=== PATIENT | male | born 1990 | race Caucasian/White ===

== ENCOUNTER 2019-09-12 17:03 | Emergency (ER) | payer BC ==
[2019-09-12] MEDS ORDERED: HYDROCODONE/APAP 7.5/325 MG TAB ONE (17:32)
[2019-09-12] MEDS ORDERED: IBUPROFEN 400 MG TAB ONE (17:32)
--- NOTE | 2019-09-12 18:27 | ER ---
Nurse's Notes [facility] Name: Sekou Hammond Age: 28 yrs Sex: Male : 1990 Arrival Date: 09/12/2019 Time: 17:07 Bed 19 Private MD: Diagnosis: Pain in right knee Presentation: 09/11 17:15 Chief complaint: Patient states: [place] a pop then pain to right knee after getting up ll1 from crouching position 90 min [employer]. No trauma or falls. Coronavirus screen: Proceed with normal triage. Patient denies a cough. Patient denies shortness of breath or difficulty breathing. Patient denies measured and/or subjective temperature greater than 100.4F prior to today's visit. Patient denies travel on a cruise ship or to a country the [facility] currently lists as an affected area. Patient denies contact with known and/or suspected case of COVID-19. Ebola Screen: Patient denies travel to an Ebola-affected area in the 21 days before illness onset. Initial Sepsis Screen: Does the patient meet any 2 criteria? HR > 90 bpm. Yes Does the patient have a suspected source of infection? No. Patient's initial sepsis screen is negative. Risk Assessment: Do you want to hurt yourself or someone else? Patient reports no desire to harm self or others. Onset of symptoms was September 12, 2019. 17:15 Method Of Arrival: Wheelchair ll1 17:15 Acuity: SANJAY 4 ll1 Historical: - Allergies: 17:17 No Known Allergies; ll1 - PMHx: 17:17 None; ll1 - PSHx: 17:17 None; ll1 - Immunization history:: Adult Immunizations up to date, Flu vaccine is up to date. - Social history:: Smoking status: Patient reports the use of cigarette tobacco products, smokes one-half pack cigarettes per day, Patient uses alcohol, only on a social basis. Patient/guardian denies using street drugs. Screenin:30 Abuse screen: Denies threats or abuse. Nutritional screening: No deficits noted. ah Tuberculosis screening: No symptoms or risk factors identified. Fall Risk None identified. Assessment: 17:20 General: Appears uncomfortable, Behavior is calm, cooperative. Pain: Complains of pain ah in posterior aspect of right knee and medial aspect of right knee Pain does not radiate. Pain currently is 8 out of 10 on a pain scale. Quality of pain is described as aching, Pain began 1 hour ago. Is intermittent, Aggravated by repositioning, bending/straightening knee. Neuro: Level of Consciousness is awake, alert, Oriented to person, place, time, situation, Gis Professor are. Cardiovascular: Heart tones S1 S2 present Capillary refill Patient's skin is warm and dry. Pulses are palpable in right radial artery, right dorsalis pedis artery, left radial artery and left dorsalis pedis artery. Respiratory: Airway is patent Respiratory effort is even, unlabored, Respiratory pattern is regular, symmetrical. GI: No signs and/or symptoms were reported involving the gastrointestinal system. : No signs and/or symptoms were reported regarding the genitourinary system. EENT: No signs and/or symptoms were reported regarding the EENT system. Derm: No signs and/or symptoms reported regarding the dermatologic system. Musculoskeletal: Circulation, motion, and sensation intact. Range of motion: limited in right knee Swelling pt states that he feels that his right knee is swollen, unable to pull jeans up to assess Tenderness present in posterior aspect of right knee Reports that he bent down and knee popped about an hour ago and he has severe pain and limited mobility since. Vital Signs: 17:15 BP 138 / 95; Pulse 106; Resp 19; Temp 97.6; Pulse Ox 96% ; Pain 7/10; ll1 ED Course: 17:07 Patient arrived in ED. mr 17:07 Jeremy Steen PA is PHCP. cp 17:08 Jeremy Martin MD is Attending Physician. cp 17:17 Triage completed. ll1 17:17 Arm band placed on Patient placed in an exam room, on a stretcher. ll1 17:23 Damaris Du, RN is Primary Nurse. 17:36 Patient has correct armband on for positive identification. Bed in low position. Call light in reach. 18:05 XRAY Knee RIGHT 3 view In Process Unspecified. EDMS 18:26 Gael Bishop MD is Referral Physician. cp 18:49 No provider procedures requiring assistance completed. Patient did not have IV access ah during this emergency room visit. Administered Medications: 17:29 Drug: Hydrocodone-Acetaminophen (7.5 mg-325 mg) 1 tabs Route: PO; 18:48 Follow up: Response: No adverse reaction; RASS: Alert and Calm (0) 17:30 Drug: Ibuprofen 800 mg Route: PO; 18:48 Follow up: Response: No adverse reaction Outcome: 18:27 Discharge ordered by MD. cp 18:48 Discharged to home with crutches. 18:48 Condition: good 18:48 Discharge instructions given to patient, Instructed on discharge instructions, follow up and referral plans. medication usage, Demonstrated understanding of instructions, follow-up care, medications, crutch walking, Prescriptions given X 1. 18:50 Patient left the ED. Signatures: Dispatcher [employer] EDKY McclureAviva Corey, PA PA cp Harris, Amy, RN RN Yessica Ann RN RN ll1
--- NOTE | 2019-09-12 18:28 | EDPHYS ---
Physician Documentation [facility] Name: Sekou Hammond Age: 28 yrs Sex: Male : 1990 Arrival Date: 09/12/2019 Time: 17:07 Bed 19 Private MD: PETER Physician Jeremy Martin HPI: 09/11 17:25 This 28 yrs old Male presents to ER via Wheelchair with complaints of Knee cp Injury. 17:25 The patient presents with pain, that is acute. cp 17:25 The complaints affect the posterior aspect of right knee. cp 17:25 Context: resulted from felt "pop" as patient stood up from bending at the knees. Onset: cp The symptoms/episode began/occurred today. Associated signs and symptoms: Pertinent negatives calf tenderness, numbness, swelling. Treatment prior to arrival includes: no previous treatment. Historical: - Allergies: 17:17 No Known Allergies; ll1 - PMHx: 17:17 None; ll1 - PSHx: 17:17 None; ll1 - Immunization history:: Adult Immunizations up to date, Flu vaccine is up to date. - Social history:: Smoking status: Patient reports the use of cigarette tobacco products, smokes one-half pack cigarettes per day, Patient uses alcohol, only on a social basis. Patient/guardian denies using street drugs. ROS: 17:30 MS/extremity: Positive for pain, of the right knee, Negative for deformity, cp paresthesias. 17:30 Constitutional: Negative for fever. cp 17:30 Cardiovascular: Negative for chest pain. 17:30 Respiratory: Negative for shortness of breath. 17:30 Neuro: Negative for weakness. 17:30 All other systems are negative. Exam: 17:40 Constitutional: The patient appears in no acute distress, alert, awake, well developed, cp well nourished. 17:40 Head/Face: Normocephalic, atraumatic. cp 17:40 Musculoskeletal/extremity: Extremities: grossly normal except: noted in the right side posterior aspect of right knee: pain, tenderness, There is no evidence of decreased ROM, deformity, ROM: limited passive range of motion due to pain, in the right knee, Perfusion: the extremity is normally perfused throughout, Sensation intact. Tendon exam: specific tendon testing normal through active and passive range of motion 17:40 Skin: cellulitis, is not appreciated. Vital Signs: 17:15 BP 138 / 95; Pulse 106; Resp 19; Temp 97.6; Pulse Ox 96% ; Pain 7/10; ll1 Procedures: 18:50 Splinting: Splint applied to right knee using knee immobilizer, applied by nurse. cp Examined by me, post splint application: neurovascular intact, Patient tolerated well. MDM: 17:10 Patient medically screened. kelin 17:21 ED course: No results found on website of [place] prescription monitoring program. cp 17:30 Differential diagnosis: dislocation, closed fracture, ligament injury, meniscus tear. cp 18:18 Test interpretation: by ED physician or midlevel provider: xrays of right knee negative cp for fracture. 18:26 Data reviewed: vital signs, nurses notes, radiologic studies, plain films, and as a cp result, I will discharge patient. 18:26 Counseling: I had a detailed discussion with the patient and/or guardian regarding: the cp historical points, exam findings, and any diagnostic results supporting the discharge/admit diagnosis, radiology results, the need for outpatient follow up, a orthopedic surgeon, to return to the emergency department if symptoms worsen or persist or if there are any questions or concerns that arise at home. 18:26 Response to treatment: the patient's symptoms have markedly improved after treatment, cp and as a result, I will discharge patient. 09/11 17:42 Order name: XRAY Knee RIGHT 3 view; Complete Time: 18:33 cp 09/11 18:33 Interpretation: Report reviewed. cp 09/11 18:24 Order name: Knee Immobilizer; Complete Time: 18:47 cp 09/11 18:24 Order name: Crutches; Complete Time: 18:47 cp Administered Medications: 17:29 Drug: Hydrocodone-Acetaminophen (7.5 mg-325 mg) 1 tabs Route: PO; ah 18:48 Follow up: Response: No adverse reaction; RASS: Alert and Calm (0) ah 17:30 Drug: Ibuprofen 800 mg Route: PO; ah 18:48 Follow up: Response: No adverse reaction Disposition: 19:00 Chart complete. cp Disposition: 09/12/19 18:27 Discharged to Home. Impression: Pain in right knee. - Condition is Stable. - Discharge Instructions: Knee Immobilizer, Knee Pain. - Prescriptions for Diclofenac Sodium 75 mg Oral Tablet Sustained Release - take 1 tablet by ORAL route 2 times per day; 30 tablet. - Medication Reconciliation Form, Thank You Letter, Antibiotic Education, Prescription Opioid Use form. - Follow up: Gael Bishop MD; When: 2 - 3 days; Reason: Recheck today's complaints. - Problem is new. - Symptoms have improved. Addendum: 09/14/2019 09:57 Co-signature as Attending Physician, Jeremy Martin MD I agree with the assessment and c krishnan plan of care. Signatures: Dispatcher [employer] EDIA Jeremy Martin MD MD cha Page, Corey, PA PA Damaris Martínez, RN RN Yessica Ann RN RN ll1 Corrections: (The following items were deleted from the chart) 09/11 18:50 18:27 09/12/2019 18:27 Discharged to Home. Impression: Pain in right knee. Condition is ah Stable. Forms are Medication Reconciliation Form, Thank You Letter, Antibiotic Education, Prescription Opioid Use. Follow up: Gael Bishop; When: 2 - 3 days; Reason: Recheck today's complaints. Problem is new. Symptoms have improved. cp
--- NOTE | 2019-09-12 18:31 | RAD REPORT ---
EXAM DESCRIPTION: RAD - Knee Right 3 View - 09/12/2019 6:04 pm CLINICAL HISTORY: Right knee pain status post injury FINDINGS: No fracture or dislocation is seen. Small joint effusion If patient continues to have symptoms to suggest a ligamentous, tendon or meniscal injury then MRI wo uld be recommended
[2019-09-12 18:58] VITALS: BP 138/95; TEMP 97.6; O2SAT 96
== END 2019-09-12 18:50 | disposition home or self-care (01) ==
LOC: ER 17:03
DX: M25.561 Pain in right knee (principal); F17.210 Nicotine dependence, cigarettes, uncomplicated
CPT/HCPCS: 99284